=== PATIENT | female | born 1940 | race Caucasian/White ===

== ENCOUNTER 2017-06-02 19:45 | Inpatient (IN) | payer MEDICARE, OTHER ==
[~2017-06-02] VITALS: Ht 152.4 cm; Wt 67.1 kg
[~2017-06-02 19:45] MED LIST: ADALAT CC60 MG PO; ASPIR 8181 M1 PO; ASPIR 8181 MG PO; BENAZEPRIL HCL20 MG PO; BENTYL 10 MG CA10 M1 PO; CATAPRES0.1 MG PO; CENTRUM SILVER1 EAC4 PO; CENTURY ADULTS1 EACH PO; CHOLESTEROL; CLONIDINE0.1 PO; E-400 C-500 &1 EACH PO; HYDROCHLOROTH12.5 M1 PO; IMDUR 30 MG TAB30 M1 PO; LISINOPRIL20 MG PO; MIRALAX17 GM PO; NEXIUM40 MG PO; PRAVACHOL20 MG PO; SIMVASTATIN40 MG PO; TRAMADOL 50 MG50 MG PO; VITAMIN D1000 UNI1 PO; VITAMIN D3 COM1 EACH PO; VITAMIN E100 UNI1 PO; VITAMINS; ZOFRAN ODT4 MG PO; ZOFRAN4 MG PO; ZOLOFT50 MG PO
[2017-06-02 19:58] VITALS: BP 142/60
[2017-06-02 20:36] LABS: ABSOLUTE EOSINOPHILS 0.1 thou/uL (0.0-0.7); ABSOLUTE LYMPHOCYTES 2.5 thou/uL (0.8-5.3); ABSOLUTE MONOCYTES 0.7 thou/uL (0.0-1.2); ABSOLUTE NEUTROPHILS 2.7 thou/uL (1.6-8.1); BASOPHILS 0.7 %; EOSINOPHILS 1.2 %; HEMOGLOBIN 11.9 gm/dL (12.0-15.0); LYMPHOCYTES 41.6 %; MCH 28.6 pg (26.0-34.0); MCHC 32.9 g/dL (28.0-37.0); MCV 86.9 fL (80.0-100.0); MONOCYTES 11.3 %; MPV 7.4 fl. (7.2-11.1); NUCLEATED RBCS 0 /100WBC; PLATELET COUNT* 251 thou/uL (150-400); POLYS 45.2 %; RBC 4.15 mil/uL (4.20-5.00); RDW-CV 14.9 % (10.5-14.5)
[2017-06-02 20:50] LABS: CALCIUM 9.1 mg/dL (8.5-10.1); CREATININE 0.9 mg/dL (0.6-1.3); POTASSIUM 4.3 mmol/L (3.5-5.1)
[2017-06-02 20:54] LABS: ALBUMIN 3.4 g/dL (3.4-5.0); TOTAL BILIRUBIN 0.2 mg/dL (<0.1-1.0); TOTAL PROTEIN 7.1 g/dL (6.4-8.2)
[2017-06-02 21:16] LABS: URINE BILIRUBIN NEGATIVE (Negative); URINE BLOOD NEGATIVE (Negative); URINE CLARITY CLEAR; URINE COLOR YELLOW; URINE GLUCOSE-RANDOM NEGATIVE (Negative); URINE KETONES NEGATIVE (Negative); URINE LEUKOCYTES-REFLEX NEGATIVE (Negative); URINE NITRITE-REFLEX NEGATIVE (Negative); URINE PROTEIN NEGATIVE (Negative); URINE UROBILINOGEN 0.2 E.U./dl (0.2-1.0)
[2017-06-02 21:43] LABS: INFLUENZA A ANTIGEN None Detected (None Detect); INFLUENZA B ANTIGEN None Detected (None Detect)
[2017-06-03 00:05] VITALS: BP 158/99
[2017-06-03 04:51] LABS: ALBUMIN 3.1 g/dL (3.4-5.0); CALCIUM 8.8 mg/dL (8.5-10.1); CREATININE 0.6 mg/dL (0.6-1.3); POTASSIUM 3.4 mmol/L (3.5-5.1); TOTAL BILIRUBIN 0.2 mg/dL (<0.1-1.0)
[2017-06-03 04:59] LABS: HEMATOCRIT 33.8 % (37.0-47.0); HEMOGLOBIN 11.3 gm/dL (12.0-15.0); MCH 28.8 pg (26.0-34.0); MCHC 33.6 g/dL (28.0-37.0); MCV 85.9 fL (80.0-100.0); MPV 7.4 fl. (7.2-11.1); RBC 3.93 mil/uL (4.20-5.00); RDW-CV 14.8 % (10.5-14.5)
--- NOTE | 2017-06-03 07:40 | NUR ---
PATIENT ARRIVED TO UNIT AT 2322 FROM ER. ALERT AND ORIENTED. VITALS STABLE. RA. ORIENTED TO ROOM AND STAFF. EDUCATED ABOUT FALL PREVENTION. SKIN INTACT. NO SIGNS OF ANY RESPIRATORY DISTRESS. TYLENOL GIVEN FOR A HEADACHE. UP SBA FOR TO BATHROOM. NONPRODUCTIVE COUGH. HOURLY ROUNDS. NURSING WILL CONTINUE TO MONITOR.
[2017-06-03 08:25] VITALS: BP 148/68
[2017-06-03 15:00] VITALS: BP 136/52
--- NOTE | 2017-06-03 16:18 | NUR ---
PT.LIVES AT HOME WITH . IS NORMALLY FAIRLY INDEPENDENT. DOES NOT USE ANY DME AND NO HX OF HH OR SNF. SHE DOES HAVE ANXIETY AT TIMES. SHE SAID THIS MAKES HER FEEL LIKE THINGS ARE WORSE THAN THEY REALLY ARE. PLAN IS TO GO HOME WITH AT DISCHARGE. WOULD CONSIDER HOME HEALTH.
--- NOTE | 2017-06-03 16:21 | NUR ---
PATIENT REMAINS ALERT AND ORIENTED. TYLENOL FOR HEADACHE. TESSALON PERLES FOR COUGH. VSS. UP TO CHAIR THIS AFTERNOON. PHYSICAL THERAPY CLEARED PATIENT TO BE UP AD YEMI. BM THIS AM. EATING SMALL AMOUNT OF MEALS. AT BEDSIDE. CALL LIGHT WITHIN REACH. WILL CONTINUE TO MONITOR.
[2017-06-03 19:45] VITALS: BP 128/54
--- NOTE | 2017-06-04 04:44 | NUR ---
PATIENT ALERT AND ORIENTED. VITALS STABLE. RA. CONTINUED NONPRODUCTIVE COUGH. NO SIGNS OF ANY RESPIRATORY DISTRESS. POSITIVE BLOOD CULTURE RESULTS CALLED TO PHYSICIAN, NO ORDERS RECEIVED. UP INDEPENDENTLY. HOURLY ROUNDS. NURSING WILL CONTINUE TO MONITOR.
[2017-06-04] MEDS ORDERED: TESSALON PERLE100 MG PO (07:15)
[2017-06-04 07:30] VITALS: BP 141/56
--- NOTE | 2017-06-04 09:43 | NUR ---
P.T. EVAL COMPLETED YESTERDAY WITH RECOMMENDATION FOR 1 ADDTIONAL VISIT TO ENSURE INDEP AMB. PT OBSERVED UP IN ROOM INDEP. PT REPORTS INDEP IN SHOWER THIS A.M. AND PLANS TO DISCHARGE HOME. GOALS MET FOR INDEP AMB. NO FURTHER ACUTE P.T. INTERVENTION INDICATED.
[2017-06-04 10:08] VITALS: BP 141/56
[2017-06-04 10:29] VITALS: BP 141/56
--- NOTE | 2017-06-04 10:59 | NUR ---
CM SPOKE TO THE PATIENT TO DISCUSS DISCHARGE PLANNING NEEDS AND TO OFFER HH. PATIENT DECLINED HH. CM INFORMED THE RN IN-CHARGE OF THIS. RN IN AGREEMENT. CM WILL REMAIN AVAILABLE TO ASSIST AND FOLLOW NEEDED.
--- NOTE | 2017-06-04 11:02 | NUR ---
ORDER RECEIVED FOR "OT EVALUATION AND TREATMENT". CHART REVIEWED. REPORTS OF I SHOWER AND AMBULATION THIS AM. POSSIBLE D/C TODAY. PLAN TO D/C FROM [facility].
[2017-06-04 12:57] VITALS: BP 141/56
--- NOTE | 2017-06-04 13:00 | NUR ---
PATIENT LEFT UNIT AT 1205. ALERT AND ORIENTED X4. UP AD YEMI IN ROOM. IV DC'D. DENIES PAIN AND NAUSEA. ALL PERSONAL ITEMS LEFT WITH PATIENT. DISCHARGE INSTRUCTIONS SENT WITH PATIENT. VSS ON ROOM AIR. HOURLY ROUNDS HAVE BEEN MAINTAINED THROUGHOUT SHIFT. LEFT WITH VIA CAR.
== END 2017-06-04 12:05 | disposition home or self-care (01) | DRG 202 ==
LOC: M.ERS 19:45 → M.ORTHSURG 21:40 → M.TBA-ER 21:40 → M.ORTHSURG 23:38
PROVIDERS: Emergency Medicine; Psychiatry & Neurology Neurology; ADMIT Internal Medicine
DX: J20.8 Acute bronchitis due to other specified organisms (principal); J98.11 Atelectasis; E44.1 Mild protein-calorie malnutrition; B34.9 Viral infection, unspecified; J06.9 Acute upper respiratory infection, unspecified; K57.90 Diverticulosis of intestine, part unspecified, without perforation or abscess without bleeding; E78.5 Hyperlipidemia, unspecified; I10 Essential (primary) hypertension; Z85.3 Personal history of malignant neoplasm of breast; Z92.3 Personal history of irradiation; Z90.49 Acquired absence of other specified parts of digestive tract; Z90.711 Acquired absence of uterus with remaining cervical stump; Z95.0 Presence of cardiac pacemaker; Z88.6 Allergy status to analgesic agent; Z88.1 Allergy status to other antibiotic agents; Z88.8 Allergy status to other drugs, medicaments and biological substances; Z87.891 Personal history of nicotine dependence; Z82.49 Family history of ischemic heart disease and other diseases of the circulatory system; Z80.0 Family history of malignant neoplasm of digestive organs

== ENCOUNTER 2017-07-06 12:21 | Emergency (ER) | payer MEDICARE, OTHER ==
[~2017-07-06] VITALS: Ht 152.4 cm; Wt 69.8 kg
[~2017-07-06 12:21] MED LIST changes: +TESSALON PERLE100 MG PO
[2017-07-06 13:12] LABS: ABSOLUTE EOSINOPHILS 0.2 thou/uL (0.0-0.7); ABSOLUTE LYMPHOCYTES 2.5 thou/uL (0.8-5.3); ABSOLUTE MONOCYTES 0.7 thou/uL (0.0-1.2); ABSOLUTE NEUTROPHILS 4.5 thou/uL (1.6-8.1); BASOPHILS 0.4 %; HEMATOCRIT 36.1 % (37.0-47.0); LYMPHOCYTES 31.5 %; MCH 29.4 pg (26.0-34.0); MCHC 33.4 g/dL (28.0-37.0); MONOCYTES 8.5 %; MPV 7.1 fl. (7.2-11.1); NUCLEATED RBCS 0 /100WBC; PLATELET COUNT* 295 thou/uL (150-400); POLYS 56.6 %; RBC 4.09 mil/uL (4.20-5.00); RDW-CV 16.3 % (10.5-14.5)
[2017-07-06 13:21] LABS: ANION GAP 8 mmol/L (7-16); BUN 15 mg/dL (7-18); CALCIUM 8.6 mg/dL (8.5-10.1); CHLORIDE 104 mmol/L (98-107); CO2 28 mmol/L (21-32); CREATININE 0.8 mg/dL (0.6-1.3); GLUCOSE 192 mg/dL (70-99); POTASSIUM 3.6 mmol/L (3.5-5.1); SODIUM 140 mmol/L (136-145)
[2017-07-06 13:24] LABS: APTT 23.8 Seconds (25.0-31.3); PROTIME 9.7 Seconds (9.20-11.50)
[2017-07-06 13:32] LABS: ALBUMIN 3.5 g/dL (3.4-5.0); ALKALINE PHOSPHATASE 62 U/L (46-116); NT-PRO BRAIN NAT PEPTIDE 177 pg/mL (<300); SGOT 21 U/L (15-37); SGPT 21 U/L (30-65); TOTAL BILIRUBIN 0.3 mg/dL (<0.1-1.0); TROPONIN-I LEVEL <0.06 ng/mL (<0.06)
[2017-07-06 13:57] LABS: INFLUENZA A ANTIGEN None Detected (None Detect); INFLUENZA B ANTIGEN None Detected (None Detect)
[2017-07-06 15:08] VITALS: BP 119/46
--- NOTE | 2017-07-06 17:25 | EKG ---
[place] [address] ELECTROCARDIOGRAM REPORT Name: LULY HARRELL Room: [facility]#: [id number] Admission: 07/06/17 Attend Phys: Discharge: Date of : 36 Report #: [id number] THIS REPORT FOR: //name// [facility] ED Test Date: 2017-07-06 Test Time: 12:28:53 Pat Name: LULY HARRELL Department: Room: Gender: F Operator: Constanza MACARIO : 1940 Requested By: Nicol Raman Order Number: [id number] MD: Daniel Shaw Measurements Intervals [place] Rate: 93 P: -3 UT: 207 QRS: -24 QRSD: 95 T: 68 QT: 368 QTc: 458 Interpretive Statements atrial paced rhythm with pvc LVH with secondary repolarization abnormality Compared to ECG 02/09/2017 09:41:40 pvc noted Electronically Signed On 07-06-2017 17:25:05 MOUNTER AUT[employer] by Daniel Shaw [email or web address] <ELECTRONICALLY SIGNED> By: Daniel Shaw MD, [facility] 07/06/17 1725 1228 1228 Daniel Shaw MD, FACC /EPI
== END 2017-07-06 15:09 | disposition home or self-care (01) ==
LOC: M.ERS 12:21
PROVIDERS: Personal Emergency Response Attendant
DX: R07.89 Other chest pain (principal); I10 Essential (primary) hypertension; E78.5 Hyperlipidemia, unspecified; Z90.711 Acquired absence of uterus with remaining cervical stump; Z85.3 Personal history of malignant neoplasm of breast; Z90.49 Acquired absence of other specified parts of digestive tract; Z88.1 Allergy status to other antibiotic agents; Z88.8 Allergy status to other drugs, medicaments and biological substances; Z88.5 Allergy status to narcotic agent; Z87.891 Personal history of nicotine dependence

== ENCOUNTER 2017-11-09 19:53 | Inpatient (IN) | payer MEDICARE, OTHER ==
[~2017-11-09] VITALS: Ht 152.4 cm; Wt 73.9 kg
[2017-11-09 19:55] VITALS: BP 167/73
[2017-11-09 20:22] LABS: ABSOLUTE BASOPHILS 0.1 thou/uL (0.0-0.2); ABSOLUTE EOSINOPHILS 0.4 thou/uL (0.0-0.7); ABSOLUTE LYMPHOCYTES 3.5 thou/uL (0.8-5.3); ABSOLUTE MONOCYTES 0.8 thou/uL (0.0-1.2); ABSOLUTE NEUTROPHILS 3.5 thou/uL (1.6-8.1); BASOPHILS 0.8 %; EOSINOPHILS 4.9 %; HEMATOCRIT 37.8 % (37.0-47.0); HEMOGLOBIN 12.3 gm/dL (12.0-15.0); MCH 29.2 pg (26.0-34.0); MCHC 32.7 g/dL (28.0-37.0); MCV 89.5 fL (80.0-100.0); MONOCYTES 9.7 %; MPV 7.3 fl. (7.2-11.1); NUCLEATED RBCS 0 /100WBC; PLATELET COUNT* 319 thou/uL (150-400); POLYS 42.6 %; RBC 4.22 mil/uL (4.20-5.00); RDW-CV 14.2 % (10.5-14.5); WBC 8.3 thou/uL (4.0-11.0)
[2017-11-09 20:29] LABS: CREATININE 0.7 mg/dL (0.6-1.3); POTASSIUM 3.5 mmol/L (3.5-5.1)
[2017-11-09 20:33] LABS: PROTIME 9.4 Seconds (9.20-11.50)
[2017-11-09 20:40] LABS: ALBUMIN 3.6 g/dL (3.4-5.0); TOTAL BILIRUBIN 0.2 mg/dL (<0.1-1.0); TOTAL PROTEIN 7.1 g/dL (6.4-8.2)
[2017-11-09 22:08] LABS: URINE BILIRUBIN NEGATIVE (Negative); URINE BLOOD NEGATIVE (Negative); URINE CLARITY CLEAR; URINE COLOR YELLOW; URINE GLUCOSE-RANDOM NEGATIVE (Negative); URINE KETONES NEGATIVE (Negative); URINE LEUKOCYTES-REFLEX TRACE (Negative); URINE NITRITE-REFLEX NEGATIVE (Negative); URINE PROTEIN NEGATIVE (Negative); URINE SPECIFIC GRAVITY <= 1.005 (1.005-1.030); URINE UROBILINOGEN 0.2 E.U./dl (0.2-1.0)
[2017-11-09 22:34] LABS: MUCUS None Seen strn/LPF (None Seen); SQUAMOUS >10 Many /LPF (0-3)
[2017-11-09 22:36] LABS: BACTERIA-REFLEX None Seen /HPF (None Seen); CASTS None Seen /LPF (None Seen); URINE WBC-REFLEX 0-5 Rare /HPF (0-5)
[2017-11-09 22:37] LABS: CRYSTALS None Seen /LPF (None Seen); URINE RBC None Seen /HPF (0-2)
[2017-11-09 22:54] VITALS: BP 148/71
[2017-11-09 23:00] VITALS: BP 139/44
[2017-11-10] VITALS (25 sets, daily range): BP systolic 93–163; BP diastolic 45–74
--- NOTE | 2017-11-10 01:50 | NUR ---
PT ALERT ORIENTED. UP TO BR WITH STEADY GAIT. TELEMETRY SHOWS SR. PT STATES SHE HAS HAD LEFT SIDED CHEST PAIN, L ARM PAIN AND L JAW PAIN. SHE STATED IT WAS A 02/24 BUT NOW 07/25. ALSO HEAD ACHE 02/24. TYLENOL GIVEN. PT RESTING QUIETLY WITH EYES CLOSED. TELEMETRY SHOWS SR. NPO AT MN. WILL CONTINUE TO MONITOR.
[2017-11-10 02:09] LABS: HEMATOCRIT 35.9 % (37.0-47.0); HEMOGLOBIN 11.8 gm/dL (12.0-15.0); MCH 29.5 pg (26.0-34.0); MCHC 32.9 g/dL (28.0-37.0); MCV 89.7 fL (80.0-100.0); MPV 7.5 fl. (7.2-11.1); RBC 4.01 mil/uL (4.20-5.00); RDW-CV 14.2 % (10.5-14.5); WBC 6.5 thou/uL (4.0-11.0)
[2017-11-10 02:22] LABS: ALBUMIN 3.3 g/dL (3.4-5.0); CREATININE 0.6 mg/dL (0.6-1.3); POTASSIUM 3.8 mmol/L (3.5-5.1); TOTAL BILIRUBIN 0.2 mg/dL (<0.1-1.0); TOTAL PROTEIN 6.3 g/dL (6.4-8.2)
[2017-11-10 11:30] LABS: APTT 23.7 Seconds (25.0-31.3); PROTIME 9.8 Seconds (9.20-11.50)
--- NOTE | 2017-11-10 11:42 | EKG ---
[place] [address] ELECTROCARDIOGRAM REPORT Name: HARRELLLULY Francesca Room: [address] IN .R.#: [id number] Admission: 11/09/17 Attend Phys: Erna Aguilar MD Discharge: Date of : 38 Report #: [id number] THIS REPORT FOR: //name// [facility] ED Test Date: 2017-11-09 Test Time: 20:00:03 Pat Name: LULY HARRELL Department: Room: Gender: F Manufacturing Recruiter: : 1940 Requested By: Karin Matias Order Number: [id number] MD: Daniel Shaw Measurements Intervals [place] Rate: 81 P: 42 NE: 185 QRS: -10 QRSD: 94 T: 45 QT: 381 QTc: 443 Interpretive Statements Sinus rhythm Minimal ST depression, lateral leads Compared to ECG 07/06/2017 12:28:53 Ventricular premature complex(es) no longer present Atrial-paced complex(es) or rhythm no longer present Electronically Signed On 11-10-2017 11:42:36 CDT by Daniel Shaw [email or web address] <ELECTRONICALLY SIGNED> By: Daniel Shaw MD, FAC 11/10/17 1142 99 99 Daniel Shaw MD, [facility] /EPI
[2017-11-10 11:45] LABS: CHOLESTEROL 214 mg/dL (<200); HDL CHOLESTEROL 67 mg/dL (>40); LDL CHOLESTEROL 126 mg/dL (<100); TC:HDL 3.2 Ratio (Not establshd); TRIGLYCERIDE 108 mg/dL (<150); VLDL 22 mg/dL (<40)
[2017-11-10 11:53] LABS: SERUM ASSESSMENT Clear
--- NOTE | 2017-11-10 14:09 | NUR ---
ASSUMED PT CARE AT 0700 PT IS ALERT AND ORIENTED X 4 PT DENIES PAIN OR SOA ON RA, PT IS UP AD YEMI PT IS NOT A FALL RISK, PT IS SR ON THE MONITOR, PT IS NPO PER CARDIOLOGY WHO SAW PT AND WILL CATH, PT DOWN IN GROUP EXERCISE INSTRUCTOR, GROUP EXERCISE INSTRUCTOR CALLED REPORT NURSE GIVING REPORT STATED SHE WOULD CALL BACK, PT GOING TO ICU FROM GROUP EXERCISE INSTRUCTOR CALLED NURSE AND GAVE REPORT
[2017-11-10 14:51] LABS: HEMATOCRIT 36.8 % (37.0-47.0)
--- NOTE | 2017-11-10 15:24 | NUR ---
1455 PT RECEIVED PER BED FROM PRECISION JIG GRINDER. DOPAMINE AT 10 MCG/KG/MN SEE DOCUMENTED ASSESSMENT. PT IS NAUSEATED AT TIMES
--- NOTE | 2017-11-10 15:28 | NUR ---
DR CONNELLY INSERTIN CENTRAL INE IN LEFT GROIN. CONSENT OBTAINED FROM SPOUSE
--- NOTE | 2017-11-10 16:49 | NUR ---
DR PIERCE TO SEE PATIENT AND ORDERS NOTED. SPOUSE WENT HOME. NEPHEW HERE TO VISIT.
--- NOTE | 2017-11-10 16:55 | EKG ---
[place] [address] ELECTROCARDIOGRAM REPORT Name: HARRELLLULY Ma Room: [address] ADM IN M.R.#: [id number] Admission: 11/09/17 Attend Phys: Erna Aguilar MD Discharge: Date of : 38 Report #: [id number] THIS REPORT FOR: //name// [facility] Test Date: 2017-11-10 Test Time: 14:10:07 Pat Name: LULY HARRELL Department: Room: [address] Gender: Shop Coordinator: : 1940 Requested By: Daniel Shaw Order Number: [id number] MD: Willie Chaparro Measurements Intervals [place] Rate: 76 P: [place]: 136 QRS: -9 QRSD: 97 T: 60 QT: 372 QTc: 419 Interpretive Statements Atrial-paced complexes Compared to ECG 11/09/2017 20:00:03 Sinus rhythm no longer present ST (T wave) deviation no longer present Electronically Signed On 11-10-2017 16:54:53 CDT by Willie Chaparro [email or web address] <ELECTRONICALLY SIGNED> By: Willie Chaparro MD, [facility] 11/10/17 1654 1410 1410 Willie Chaparro MD, [facility] /EPI
--- NOTE | 2017-11-10 17:04 | NUR ---
PATIENT PROGRESSING TOWARDS GOALS. RECEIVED FROM TINSMITH APPRENTICE POST STENT TODAY AND ON DIAMINE DRIP. LESS NAUSEA AND WEANING DOPAMIN DRIP. NOT TACHYCARDIC NOW. GROIN SITE CHARTED. LEFT GROIN CENTRAL LINE PLACED FOR PRESSORS. SPOUSE AND NEPHEW HAVE VISITED. BEDREST MAINTAINED
[2017-11-11] VITALS (12 sets, daily range): BP systolic 105–149; BP diastolic 42–91
[2017-11-11 06:53] LABS: ABSOLUTE EOSINOPHILS 0.1 thou/uL (0.0-0.7); ABSOLUTE MONOCYTES 0.9 thou/uL (0.0-1.2); ABSOLUTE NEUTROPHILS 6.6 thou/uL (1.6-8.1); BASOPHILS 0.5 %; HEMATOCRIT 25.9 % (37.0-47.0); LYMPHOCYTES 21.2 %; MCH 29.8 pg (26.0-34.0); MCHC 33.2 g/dL (28.0-37.0); MCV 89.6 fL (80.0-100.0); MONOCYTES 8.9 %; MPV 7.4 fl. (7.2-11.1); NUCLEATED RBCS 0 /100WBC; PLATELET COUNT* 226 thou/uL (150-400); POLYS 68.4 %; RBC 2.89 mil/uL (4.20-5.00); RDW-CV 14.2 % (10.5-14.5); WBC 9.6 thou/uL (4.0-11.0)
[2017-11-11 07:12] LABS: CALCIUM 7.5 mg/dL (8.5-10.1); CREATININE 0.6 mg/dL (0.6-1.3); POTASSIUM 3.3 mmol/L (3.5-5.1)
[2017-11-11 07:17] LABS: HEMOGLOBIN 8.6 gm/dL (12.0-15.0)
--- NOTE | 2017-11-11 10:43 | EKG ---
[place] [address] ELECTROCARDIOGRAM REPORT Name: LULY HARRELL Room: [address] ADM IN M.R.#: [id number] Admission: 11/09/17 Attend Phys: Erna Aguilar MD Discharge: Date of : 38 Report #: [id number] THIS REPORT FOR: //name// [facility] Test Date: 2017-11-11 Test Time: 08:17:37 Pat Name: LULY HARRELL Department: Room: [address] Gender: F Soil Field Technician: : 1940 Requested By: Daniel Shaw Order Number: [id number] Reading MD: Daniel Shaw Measurements Intervals [place] Rate: 70 P: [place]: 135 QRS: -17 QRSD: 93 T: 62 QT: 431 QTc: 466 Interpretive Statements sinus rhythm with first degree AV block Borderline left axis deviation Abnormal R-wave progression, early transition Compared to ECG 11/10/2017 14:10:07 No significant changes Electronically Signed On 11-11-2017 10:43:06 CDT by Daniel Shaw [email or web address] <ELECTRONICALLY SIGNED> By: Daniel Shaw MD, [facility] 11/11/17 1043 08 08 Daniel Shaw MD, [facility] /EPI
--- NOTE | 2017-11-11 12:38 | NUR ---
PATIENT CHANGED TO TELEMETRY STATUS UP IN ROOM CENTRAL LINE DCD RAMSEY DCD. GROIN SITE DRESSED. DENIES DISTRESS. PROGRESSING.
--- NOTE | 2017-11-11 14:00 | NUR ---
PT GIVEN FENTANYL 25MCG FOR HEADACHE. WILL CONTINUE TO MONITOR.
--- NOTE | 2017-11-11 16:51 | NUR ---
PATIENT TRANSFERED TO RM [address] NOTIFIED. REPORT GIVEN TO ANNIE.
--- NOTE | 2017-11-11 18:57 | CARD ---
[address] [address] CARDIAC CATH REPORT Name: LULY HARRELL Room: [address] IN [facility]#: [id number] Admission: 11/09/17 Attend Phys: Erna Aguilar MD Discharge: Date of : 38 Report #: [id number] THIS REPORT FOR: //name// APPROVED REPORT Study performed: 11/10/2017 11:00:33 Patient Details Patient Status: In-Patient Room #: The patient is a 77 year-old female Event Personnel Willie Chaparro Preparation Operator, Courtney Bojorquez RN Machine Assembler Supervisor, Karoline Motta RN Monitor, Steff Camarena RTR Scrub, Daniel Shaw Title I Director Procedures Performed Art Access - R femoral artery* Left Heart Cath w/or w/o Coronaries [facility]AWN[facility] Place w/wo Plasty Single RCA [id number] Indication Unstable angina Risk Factors Arterial Hypertension Admission/Lab Medications/Medications given during procedure Glycoprotein IllbIlla Inhibitors, Platelet Aff. Inhib., Heparin Unfract., Heparin IV 5000 units, Heparin IV 3000 units, Aggrastat 7.5 ml, Plavix PO 600 mg Procedure Narrative The patient was brought electively to the Cardiac Catheterization Laboratory and was prepped and draped in a sterile manner. The right femoral was infiltrated with 1% Lidocaine subcutaneous anesthesia. A 6fr Ultimum Sheath sheath was inserted into the right femoral artery. Coronary angiography was performed using coronary diagnostic catheters. The right coronary system was accessed and visualized with a 6Fr JR4 catheter. The left coronary system was accessed and visualized with a 6Fr JL4 catheter. The left ventricle was accessed and visualized with a 6Fr Angled Pigtail catheter. Left ventricular/Aortic Valve gradient assessed via catheter pullback. Left ventriculogram was performed in MILLAN projection. Closure device was deployed with a 6 Fr MynxGrip 6/7[place]. [place] [address] CARDIAC CATH REPORT Name: LULY HARRELL Room: [address] IN ..#: [id number] Admission: 11/09/17 Attend Phys: Erna Aguilar MD Discharge: Date of : 38 Report #: [id number] occurred. Intraoperative Conscious Sedation Fentanyl 25 mcg Versed 1 mg Fluoro Time: 5.5 minutes Dose: 1131 mGy Contrast Type and Amount: 200 Visipaque Coronary Angiography The patient's coronary anatomy is right dominant. Diagnostic Cath Left Main Normal LAD 30% proximal narrowing. Diagonal 1 Normal Diagonal 2 Normal Diagonal 3 Normal Circumflex 50% proximal narrowing OM1 Normal Right Coronary 70% mid vessel narrowing. R PDA Normal RPLV Normal Left Ventriculography The left ventricle is normal in size with normal contractility. The left ventricular ejection fraction is estimated to be 65%. Left ventricular wall motion abnormalities are not present. Hemodynamics The aortic pressure is 132/42 mmHg with a mean of 66 mmHg. The left ventricular pressure is 152/1 mmHg with a mean of mmHg. The left ventricular end diastolic pressure is 10 mmHg. There was no gradient across the aortic valve upon pullback. Pullback from the left ventricle to the aorta revealed no gradient across the aortic valve. PCI Technique Lesion Anticoagulation was achieved with Heparin. 8000 units Patient was preloaded with Plavix. Percutaneous coronary intervention was performed on the mid right coronary artery. The lesion stenosis prior to intervention was 80% with DOMENIC 3 flow. A 6FR JCR 4 100CM Guide Catheter was used to engage the RCA ostium. A w Interventional Guidewire was used [place] [address] CARDIAC CATH REPORT Name: LULY HARRELL Room: [address] IN [facility]#: [id number] Admission: 11/09/17 Attend Phys: Erna Aguilar MD Discharge: Date of : 38 Report #: [id number] STENT DEPLOYMENT A drug-eluting stent Xience Alpine RX 2.5X15 was inserted and inflated up to 12.00atm for 15seconds. Repeat angiography revealed the following post-stent deployment results: 0% stenosis. Additional Inflation: 14.00atm for 10seconds. Final angiography reveals 0 % stenosis with DOMENIC flow. STENT DEPLOYMENT A drug-eluting stent Xience Alpine RX 2.5X12 was inserted and inflated up to 10.00atm for 22seconds. Repeat angiography revealed the following post-stent deployment results: 0% stenosis. Additional Inflation: 14.00atm for 18seconds. Final angiography reveals 0 % stenosis with DOMENIC 3 flow. COMMENTS After placement of the Mynx closure device, the patient complained of nausea and developed hypotension. ECG showed no acute changes and the patient denied chest pain. There was some swelling of the right groin, but no hematoma. The patient was given IV Zofran and IV fluids. There was concern that the patient had a retroperitoneal hematoma. IV Dopamine was started and the patient was transfered to the ICU. Conclusion 1. 80% stenosis noted in the mid rca just after the RV branch, 70% just before the acute margin 2. successful placement of 2 durg eluting stents in the mid rca Recommendations Cardiac Rehabilitation Referral Aggressive Medical Therapy Diagnostic Cath Approved by: Willie Chaparro MD Date/Time: <ELECTRONICALLY SIGNED> By: Daniel Shaw MD, FACC 11/11/171856 56 56Daniel Shaw MD, FAC /INF
[2017-11-12] VITALS: BP 123/45
[2017-11-12 04:00] VITALS: BP 119/74
--- NOTE | 2017-11-12 04:52 | NUR ---
PATIENT RESTED IN BED, NO ACUTE CHANGES. PATIENT DID NOT SHOW SIGNS OF DISTRESS. PAIN COMPLETELY RESOLVED WITH MEDICATION. FALL PRECAUTIONS IN PLACE, CALL LIGHT WITHIN REACH, HOURLY ROUNDING OBSERVED.
[2017-11-12 05:03] LABS: ABSOLUTE EOSINOPHILS 0.3 thou/uL (0.0-0.7); ABSOLUTE MONOCYTES 0.7 thou/uL (0.0-1.2); ABSOLUTE NEUTROPHILS 4.9 thou/uL (1.6-8.1); BASOPHILS 0.6 %; EOSINOPHILS 3.4 %; HEMATOCRIT 24.5 % (37.0-47.0); HEMOGLOBIN 8.2 gm/dL (12.0-15.0); LYMPHOCYTES 25.3 %; MCHC 33.5 g/dL (28.0-37.0); MCV 89.4 fL (80.0-100.0); MONOCYTES 8.9 %; MPV 7.5 fl. (7.2-11.1); NUCLEATED RBCS 0 /100WBC; PLATELET COUNT* 220 thou/uL (150-400); POLYS 61.8 %; RBC 2.74 mil/uL (4.20-5.00); RDW-CV 14.2 % (10.5-14.5); WBC 7.9 thou/uL (4.0-11.0)
[2017-11-12 05:17] LABS: ALBUMIN 2.7 g/dL (3.4-5.0); CREATININE 0.6 mg/dL (0.6-1.3); POTASSIUM 3.3 mmol/L (3.5-5.1); TOTAL BILIRUBIN 0.4 mg/dL (<0.1-1.0); TOTAL PROTEIN 5.6 g/dL (6.4-8.2)
[2017-11-12 08:30] VITALS: BP 131/61
[2017-11-12 09:06] VITALS: BP 105/62
[2017-11-12 11:45] VITALS: BP 105/62
[2017-11-12] MEDS ORDERED: PLAVIX 75 MG TA75 M1 PO (12:30)
--- NOTE | 2017-11-12 12:44 | NUR ---
ASSUMED PT CARE AT 0700 PT IS ALERT AND ORIENTED X 4 PT DENIES PAIN OR SOA PT IS UP AD YEMI PT IS NOT A FALL RISK, PT IS SR ON THE MONITOR, PT IS CLEARED FOR DISCHARGE WILL CONTINUE TO MONITOR
== END 2017-11-12 13:38 | disposition home or self-care (01) | DRG 246 ==
LOC: M.ERS 19:53 → M.TBA-ER 22:21 → M.2W 22:21 → M.ICU 22:21 → M.2W 23:15 → M.ICU 11-10 14:51 → M.2W 11-11 17:00
PROVIDERS: Emergency Medicine; Internal Medicine; Internal Medicine Cardiovascular Disease; Nurse Practitioner Family; ADMIT Internal Medicine
PROC: B2151ZZ Fluoroscopy of Left Heart using Low Osmolar Contrast (ICD-10-PCS; principal; 2017-11-10)
PROC: 4A023N7 Measurement of Cardiac Sampling and Pressure, Left Heart, Percutaneous Approach (ICD-10-PCS; principal; 2017-11-10)
PROC: 05HY33Z Insertion of Infusion Device into Upper Vein, Percutaneous Approach (ICD-10-PCS; principal; 2017-11-10)
PROC: 027035Z Dilation of Coronary Artery, One Artery with Two Drug-eluting Intraluminal Devices, Percutaneous Approach (ICD-10-PCS; principal; 2017-11-10)
PROC: B2111ZZ Fluoroscopy of Multiple Coronary Arteries using Low Osmolar Contrast (ICD-10-PCS; principal; 2017-11-10)
DX: I25.10 Atherosclerotic heart disease of native coronary artery without angina pectoris (principal); R57.0 Cardiogenic shock; I10 Essential (primary) hypertension; E78.5 Hyperlipidemia, unspecified; Z87.891 Personal history of nicotine dependence; Z85.3 Personal history of malignant neoplasm of breast; Z90.49 Acquired absence of other specified parts of digestive tract; Z90.711 Acquired absence of uterus with remaining cervical stump; Z95.0 Presence of cardiac pacemaker; Z88.6 Allergy status to analgesic agent; Z88.1 Allergy status to other antibiotic agents; Z88.8 Allergy status to other drugs, medicaments and biological substances; Z92.3 Personal history of irradiation; Z80.0 Family history of malignant neoplasm of digestive organs; Z82.49 Family history of ischemic heart disease and other diseases of the circulatory system

== ENCOUNTER 2017-11-15 23:57 | Observation (INO) | payer MEDICARE, OTHER ==
[~2017-11-15] VITALS: Ht 149.9 cm; Wt 70.3 kg
[~2017-11-15 23:57] MED LIST changes: +PLAVIX 75 MG TA75 M1 PO
[2017-11-15 23:59] VITALS: BP 116/68
[2017-11-16 00:22] LABS: ABSOLUTE BASOPHILS 0.1 thou/uL (0.0-0.2); ABSOLUTE EOSINOPHILS 0.4 thou/uL (0.0-0.7); ABSOLUTE LYMPHOCYTES 2.4 thou/uL (0.8-5.3); ABSOLUTE MONOCYTES 0.9 thou/uL (0.0-1.2); ABSOLUTE NEUTROPHILS 4.8 thou/uL (1.6-8.1); BASOPHILS 0.8 %; EOSINOPHILS 4.4 %; HEMATOCRIT 26.7 % (37.0-47.0); HEMOGLOBIN 8.9 gm/dL (12.0-15.0); LYMPHOCYTES 28.4 %; MCHC 33.4 g/dL (28.0-37.0); MCV 89.8 fL (80.0-100.0); MONOCYTES 10.2 %; MPV 7.3 fl. (7.2-11.1); NUCLEATED RBCS 0 /100WBC; PLATELET COUNT* 322 thou/uL (150-400); POLYS 56.2 %; RBC 2.98 mil/uL (4.20-5.00); RDW-CV 14.2 % (10.5-14.5); WBC 8.6 thou/uL (4.0-11.0)
[2017-11-16 00:31] LABS: ANION GAP 9 mmol/L (7-16); BUN 17 mg/dL (7-18); CALCIUM 8.8 mg/dL (8.5-10.1); CHLORIDE 105 mmol/L (98-107); CO2 27 mmol/L (21-32); CREATININE 0.7 mg/dL (0.6-1.3); GLUCOSE 115 mg/dL (70-99); POTASSIUM 3.8 mmol/L (3.5-5.1); SODIUM 141 mmol/L (136-145)
[2017-11-16 00:34] LABS: PROTIME 9.4 Seconds (9.20-11.50)
[2017-11-16 00:41] LABS: ALBUMIN 3.2 g/dL (3.4-5.0); ALKALINE PHOSPHATASE 78 U/L (46-116); LIPASE 183 U/L (73-393); NT-PRO BRAIN NAT PEPTIDE 249 pg/mL (<300); SGOT 23 U/L (15-37); SGPT 21 U/L (30-65); TOTAL BILIRUBIN 0.8 mg/dL (<0.1-1.0); TOTAL PROTEIN 6.7 g/dL (6.4-8.2); TROPONIN-I LEVEL <0.06 ng/mL (<0.06)
[2017-11-16 01:05] LABS: URINE BILIRUBIN NEGATIVE (Negative); URINE BLOOD NEGATIVE (Negative); URINE CLARITY CLEAR; URINE COLOR YELLOW; URINE GLUCOSE-RANDOM NEGATIVE (Negative); URINE KETONES NEGATIVE (Negative); URINE LEUKOCYTES-REFLEX 1+ (Negative); URINE NITRITE-REFLEX NEGATIVE (Negative); URINE PROTEIN NEGATIVE (Negative); URINE SPECIFIC GRAVITY <= 1.005 (1.005-1.030); URINE UROBILINOGEN 0.2 E.U./dl (0.2-1.0)
[2017-11-16 01:31] LABS: BACTERIA-REFLEX >30 Many /HPF (None Seen); CASTS None Seen /LPF (None Seen); CRYSTALS None Seen /LPF (None Seen); MUCUS 0-3 Light strn/LPF (None Seen); SQUAMOUS 0-3 Few /LPF (0-3); TRANSITIONAL EPITHEL CELL 0-3 Few /LPF (None Seen); URINE RBC 3-10 Few /HPF (0-2); URINE WBC-REFLEX >25 Many /HPF (0-5); WBC CLUMPS Moderate (None Seen)
[2017-11-16 03:43] VITALS: BP 117/62
[2017-11-16 04:16] VITALS: BP 139/64
[2017-11-16 08:30] VITALS: BP 160/61
--- NOTE | 2017-11-16 09:53 | EKG ---
[place] [address] ELECTROCARDIOGRAM REPORT Name: LULY HARRELL Room: [place] [address] ADM IN [facility].#: [id number] Admission: 11/16/17 Attend Phys: Francesca Reza Discharge: Date of : 38 Report #: [id number] THIS REPORT FOR: //name// [facility] ED Test Date: 2017-11-16 Test Time: 00:07:13 Pat Name: LULY HARRELL Department: Room: Gender: Linseed Cake Trimmer: MOON Apodaca : 1940 Requested By: Karin Matias Order Number: [id number] MD: Daniel Shaw Measurements Intervals [place] Rate: 85 P: 26 [place]: 181 QRS: -20 QRSD: 95 T: 40 QT: 359 QTc: 427 Interpretive Statements Sinus rhythm Multiple ventricular premature complexes Left ventricular hypertrophy Compared to ECG 11/11/2017 08:17:37 Ventricular premature complex(es) now present Left ventricular hypertrophy now present First degree AV block no longer present Electronically Signed On 11-16-2017 9:53:40 CDT by Daniel Shaw [email or web address] <ELECTRONICALLY SIGNED> By: Daniel Shaw MD, [facility] 11/16/17 0953 0007 0007 Daniel Shaw MD, [facility] /EPI
[2017-11-16 10:40] VITALS: BP 160/61
--- NOTE | 2017-11-17 16:40 | CON ---
[address] [address] CONSULTATION Name: LULY HARRELL Room: [address] Maribel Bosch#: [id number] Admission: 11/16/17 Attend Phys: Francesca Reza Discharge: 11/16/17 Date of : 38 Report #: [id number] THIS REPORT FOR: //name// CC: DR TERRIE Wheeler DATE OF SERVICE: 11/16/2017 HISTORY OF PRESENT ILLNESS: The patient is a 77-year-old white female who I was asked to see in the hospital today after she complained of chest pain. The patient initially presented back in 01/2017. At that time, she presented with an episode of bradycardia. She felt lightheaded and weak. She was noted to be bradycardic. She was sent to the hospital and seen by my nurse practitioner Debra Maciel. She was felt to have sick sinus syndrome. Dr. Chaparro subsequently implanted a permanent dual chamber pacemaker. She has done well since that time. She then presented last week on 11/09 complaining of chest pain. She was seen by Debra Maciel again who felt the patient was having unstable angina. Dr. Chaparro performed a cardiac catheterization from the right femoral artery. The radial approach was not used because of previous mastectomy. She was found to have an ejection fraction of 65%. She was noted to have an 80% stenosis in the mid right coronary artery and 70% stenosis in the more distal right coronary artery just before the acute margin. I then placed two drug-eluting stents in the right coronary artery. She was given heparin and loaded with Plavix. A Mynx closure device was placed. After the procedure, the patient had significant nausea and hypertension. ECG showed no acute changes. There is some swelling in the right groin, but no hematoma. She was given Zofran and fluids. She was transferred to the ICU. She was placed on dopamine. Left femoral venous sheath was placed. She eventually recovered. Following day, she felt well. She had no further leg complaints. She was then discharged. She was at home yesterday when she had an episode of epigastric discomfort. There was no radiation of the pain or associated shortness of breath, diaphoresis. An ambulance was called. She was brought here to [facility] and admitted. Her blood pressure noted to be elevated. She has had no bleeding, fever or cough. She has had no vomiting. She does note some exertional dyspnea and palpitations. No recent syncope. PAST MEDICAL HISTORY: Significant for breast cancer, hemicolectomy for diverticular disease, appendectomy, cataract extraction, hypertension, hyperlipidemia. No history of diabetes. MEDICATIONS: On admission included nifedipine, Nexium, lisinopril, pravastatin. She was taken off nifedipine because of her low blood pressure, and she has not taken an aspirin today. ALLERGIES: SHE HAS A PREVIOUS INTOLERANCE TO MORPHINE, CIPRO, [place] [address] CONSULTATION Name: LULY HARRELL Room: [place] [address] IMER Bosch#: [id number] Admission: 11/16/17 Attend Phys: Francesca Reza Discharge: 11/16/17 Date of : 38 Report #: [id number] FAMILY HISTORY: Positive for heart disease. SOCIAL HISTORY: She is . She and her live in [place]. She quit smoking in 1992. She drinks alcohol rarely. REVIEW OF SYSTEMS: She was told in the past she has had a TIA, but she does not even remember her symptoms. No history of asthma. She had a peptic ulcer years ago. She has had a kidney stone in the past. She had breast cancer, no psychiatric illness. PHYSICAL EXAMINATION: GENERAL: Elderly, frail appearing female, lying in bed. She appeared in no acute distress. VITAL SIGNS: She had a blood pressure of 130/40, pulse is 80, she is afebrile. HEENT: She is anicteric, conjunctiva pink. Mucous membranes moist. NECK: Veins nondistended. No carotid bruits. Neck supple. CHEST: Clear to auscultation. CARDIOVASCULAR: Regular rate and rhythm. Well-healed incision over the pacemaker in left subclavicular area. ABDOMEN: Soft. EXTREMITIES: There is a significant amount of ecchymosis in the right lower extremity. There was also a right femoral bruit, no edema. SKIN: Warm and dry. NEUROLOGIC: Nonfocal. RADIOLOGICAL DATA: ECG showed a sinus rhythm with occasional PACs, nonspecific ST and T-wave changes. LABORATORY DATA: Sodium 141, creatinine 0.7. Her troponin was 0.06. Her white blood cell count was 8.6, hemoglobin 8.9, which is down from 12.3 on 11/09, but up from 8.2 on 11/12. Her x-rays done in the Emergency Room yesterday, she had a portable chest x-ray that showed normal heart size, clear lung gray. IMPRESSION AND RECOMMENDATIONS: 1. Epigastric pain. Suspect dyspepsia. Cannot rule out coronary spasm. I would not recommend stress testing at this time. If the patient remains stable, I think it is reasonable to discharge the patient this afternoon. She does have followup with my nurse practitioner next week. 2. Recent stenting of the right coronary artery. The patient should be on Plavix and aspirin. 3. Previous pacemaker for sick sinus syndrome. 4. Hypertension. The patient was no longer taking her nifedipine because of low blood pressure. 5. Hyperlipidemia. The patient is on a statin drug. 6. History of breast cancer. [address] [address] CONSULTATION Name: LULY HARRELL Room: [address] Maribel Bosch#: [id number] Admission: 11/16/17 Attend Phys: Francesca Reza Discharge: 11/16/17 Date of : 36 Report #: [id number] 7. History of a kidney stone. 8. Sick sinus syndrome. Previous pacemaker insertion. <ELECTRONICALLY SIGNED> By: Daniel Shaw MD, FACC 11/17/17 1640 0829 1310Daolivier Shaw MD, FACC /nt
== END 2017-11-16 12:40 | disposition home or self-care (01) ==
LOC: M.ERS 23:57 → M.2W 11-16 01:08 → M.TBA-ER 11-16 01:08 → M.2W 11-16 03:42
PROVIDERS: Emergency Medicine; ADMIT Internal Medicine
DX: K29.00 Acute gastritis without bleeding (principal); I25.10 Atherosclerotic heart disease of native coronary artery without angina pectoris; I10 Essential (primary) hypertension; E78.5 Hyperlipidemia, unspecified; I49.5 Sick sinus syndrome; Z95.5 Presence of coronary angioplasty implant and graft; Z90.89 Acquired absence of other organs; Z85.3 Personal history of malignant neoplasm of breast; Z95.0 Presence of cardiac pacemaker

== ENCOUNTER 2017-12-12 11:05 | Inpatient (IN) | payer MEDICARE, OTHER ==
[~2017-12-12] VITALS: Ht 152.4 cm; Wt 68.9 kg
[2017-12-12 11:17] VITALS: BP 184/65
[2017-12-12 11:24] LABS: URINE BILIRUBIN NEGATIVE (Negative); URINE BLOOD NEGATIVE (Negative); URINE COLOR YELLOW; URINE GLUCOSE-RANDOM NEGATIVE (Negative); URINE KETONES NEGATIVE (Negative); URINE LEUKOCYTES-REFLEX NEGATIVE (Negative); URINE NITRITE-REFLEX NEGATIVE (Negative); URINE PROTEIN NEGATIVE (Negative); URINE SPECIFIC GRAVITY 1.015 (1.005-1.030); URINE UROBILINOGEN 0.2 E.U./dl (0.2-1.0)
[2017-12-12 11:27] LABS: URINE CLARITY CLEAR
[2017-12-12 11:38] LABS: ABSOLUTE BASOPHILS 0.1 thou/uL (0.0-0.2); ABSOLUTE EOSINOPHILS 0.3 thou/uL (0.0-0.7); ABSOLUTE LYMPHOCYTES 1.9 thou/uL (0.8-5.3); ABSOLUTE MONOCYTES 0.6 thou/uL (0.0-1.2); ABSOLUTE NEUTROPHILS 6.7 thou/uL (1.6-8.1); BASOPHILS 0.6 %; EOSINOPHILS 2.7 %; HEMATOCRIT 36.1 % (37.0-47.0); HEMOGLOBIN 11.8 gm/dL (12.0-15.0); LYMPHOCYTES 19.9 %; MCH 29.9 pg (26.0-34.0); MCHC 32.7 g/dL (28.0-37.0); MCV 91.6 fL (80.0-100.0); MONOCYTES 6.8 %; MPV 7.5 fl. (7.2-11.1); NUCLEATED RBCS 0 /100WBC; PLATELET COUNT* 276 thou/uL (150-400); RBC 3.94 mil/uL (4.20-5.00); RDW-CV 15.1 % (10.5-14.5); WBC 9.6 thou/uL (4.0-11.0)
[2017-12-12 11:46] LABS: ANION GAP 6 mmol/L (7-16); BUN 10 mg/dL (7-18); CALCIUM 8.7 mg/dL (8.5-10.1); CHLORIDE 104 mmol/L (98-107); CO2 29 mmol/L (21-32); CREATININE 0.8 mg/dL (0.6-1.3); GLUCOSE 139 mg/dL (70-99); POTASSIUM 3.3 mmol/L (3.5-5.1); SODIUM 139 mmol/L (136-145)
[2017-12-12 11:52] LABS: ALBUMIN 3.4 g/dL (3.4-5.0); ALKALINE PHOSPHATASE 72 U/L (46-116); LIPASE 130 U/L (73-393); SGOT 20 U/L (15-37); SGPT 18 U/L (30-65); TOTAL BILIRUBIN 0.4 mg/dL (<0.1-1.0); TROPONIN-I LEVEL <0.06 ng/mL (<0.06)
[2017-12-12 13:50] VITALS: BP 126/56
[2017-12-12 13:55] VITALS: BP 166/72
[2017-12-12 15:45] VITALS: BP 134/56
[2017-12-12] MEDS ORDERED: NIFEDIPINE ER60 M1 PO (17:30)
[2017-12-12 19:50] VITALS: BP 124/55
[2017-12-13] VITALS: BP 132/57
[2017-12-13 04:00] VITALS: BP 135/54
[2017-12-13 05:23] LABS: HEMATOCRIT 32.3 % (37.0-47.0); HEMOGLOBIN 10.6 gm/dL (12.0-15.0); MCH 29.9 pg (26.0-34.0); MCHC 32.8 g/dL (28.0-37.0); MCV 91.2 fL (80.0-100.0); MPV 7.5 fl. (7.2-11.1); RBC 3.54 mil/uL (4.20-5.00); RDW-CV 14.5 % (10.5-14.5); WBC 7.3 thou/uL (4.0-11.0)
[2017-12-13 05:54] LABS: CALCIUM 8.5 mg/dL (8.5-10.1); CREATININE 0.7 mg/dL (0.6-1.3); MAGNESIUM 1.9 mg/dL (1.8-2.4); POTASSIUM 3.4 mmol/L (3.5-5.1); TOTAL BILIRUBIN 0.5 mg/dL (<0.1-1.0)
[2017-12-13 08:00] VITALS: BP 139/58
[2017-12-13 11:58] VITALS: BP 155/53
--- NOTE | 2017-12-13 12:39 | EKG ---
[place] [address] ELECTROCARDIOGRAM REPORT Name: LULY HARRELL Room: [address] ADM IN M.R.#: [id number] Admission: 12/12/17 Attend Phys: Erna Aguilar MD Discharge: Date of : 38 Report #: [id number] THIS REPORT FOR: //name// [facility] ED Test Date: 2017-12-12 Test Time: 11:21:11 Pat Name: LULY HARRELL Department: Room: [facility] Gender: F Storeroom Attendant: Constanza MACARIO : 1940 Requested By: Jc Ortega Order Number: [id number] MD: Willie Chaparro Measurements Intervals [place] Rate: 80 P: 38 [place]: 168 QRS: -23 QRSD: 98 T: 54 QT: 374 QTc: 432 Interpretive Statements Sinus rhythm with PACs Left ventricular hypertrophy, by voltage Compared to ECG 11/16/2017 00:07:13 Atrial premature complex(es) now present Ventricular premature complex(es) no longer present Electronically Signed On 12-13-2017 12:39:02 CDT by Willie Chaparro [email or web address] <ELECTRONICALLY SIGNED> By: Willie Chaparro MD, FACC 12/13/17 1239 1121 1121 Willie Chaaprro MD, FAC /EPI
[2017-12-13 15:33] VITALS: BP 138/57
[2017-12-13 19:40] VITALS: BP 141/65
[2017-12-14] VITALS: BP 149/47
[2017-12-14 04:00] VITALS: BP 125/53
[2017-12-14 05:13] LABS: HEMATOCRIT 31.5 % (37.0-47.0); HEMOGLOBIN 10.4 gm/dL (12.0-15.0); MCHC 32.9 g/dL (28.0-37.0); MCV 91.1 fL (80.0-100.0); MPV 7.5 fl. (7.2-11.1); RBC 3.46 mil/uL (4.20-5.00); RDW-CV 14.7 % (10.5-14.5); WBC 4.6 thou/uL (4.0-11.0)
[2017-12-14 05:29] LABS: CALCIUM 8.2 mg/dL (8.5-10.1); CREATININE 0.7 mg/dL (0.6-1.3); MAGNESIUM 2.1 mg/dL (1.8-2.4); POTASSIUM 3.5 mmol/L (3.5-5.1)
[2017-12-14] MEDS ORDERED: TRAMADOL 50 MG50 MG PO (10:17)
[2017-12-14] MEDS ORDERED: FLAGYL500 MG PO (10:17)
[2017-12-14 11:41] VITALS: BP 175/69
== END 2017-12-14 13:30 | disposition home or self-care (01) | DRG 392 ==
LOC: M.ERS 11:05 → M.TBA-ER 12:52 → M.2W 12:52
PROVIDERS: Family Medicine; ADMIT Internal Medicine
DX: K57.32 Diverticulitis of large intestine without perforation or abscess without bleeding (principal); I10 Essential (primary) hypertension; E78.5 Hyperlipidemia, unspecified; I25.10 Atherosclerotic heart disease of native coronary artery without angina pectoris; Z85.3 Personal history of malignant neoplasm of breast; Z90.49 Acquired absence of other specified parts of digestive tract; Z92.3 Personal history of irradiation; Z95.0 Presence of cardiac pacemaker; Z90.711 Acquired absence of uterus with remaining cervical stump; Z95.5 Presence of coronary angioplasty implant and graft; Z88.8 Allergy status to other drugs, medicaments and biological substances; Z88.6 Allergy status to analgesic agent; Z88.1 Allergy status to other antibiotic agents; Z79.899 Other long term (current) drug therapy; Z82.49 Family history of ischemic heart disease and other diseases of the circulatory system; Z80.0 Family history of malignant neoplasm of digestive organs

== ENCOUNTER 2017-12-24 11:59 | Emergency (ER) | payer MEDICARE, OTHER ==
[~2017-12-24] VITALS: Ht 149.9 cm; Wt 69.0 kg
[~2017-12-24 11:59] MED LIST changes: +FLAGYL500 MG PO; +NIFEDIPINE ER60 M1 PO
[2017-12-24 12:52] LABS: ABSOLUTE EOSINOPHILS 0.2 thou/uL (0.0-0.7); ABSOLUTE LYMPHOCYTES 2.8 thou/uL (0.8-5.3); ABSOLUTE MONOCYTES 0.6 thou/uL (0.0-1.2); BASOPHILS 0.3 %; EOSINOPHILS 2.1 %; HEMATOCRIT 38.6 % (37.0-47.0); HEMOGLOBIN 12.5 gm/dL (12.0-15.0); LYMPHOCYTES 36.3 %; MCH 29.2 pg (26.0-34.0); MCHC 32.4 g/dL (28.0-37.0); MCV 90.3 fL (80.0-100.0); MONOCYTES 8.3 %; MPV 7.5 fl. (7.2-11.1); NUCLEATED RBCS 0 /100WBC; PLATELET COUNT* 456 thou/uL (150-400); RBC 4.27 mil/uL (4.20-5.00); RDW-CV 14.9 % (10.5-14.5); WBC 7.6 thou/uL (4.0-11.0)
[2017-12-24 12:57] LABS: ANION GAP 7 mmol/L (7-16); BUN 12 mg/dL (7-18); CALCIUM 8.6 mg/dL (8.5-10.1); CHLORIDE 104 mmol/L (98-107); CO2 28 mmol/L (21-32); CREATININE 0.7 mg/dL (0.6-1.3); GLUCOSE 137 mg/dL (70-99); POTASSIUM 3.7 mmol/L (3.5-5.1); SODIUM 139 mmol/L (136-145)
[2017-12-24 13:05] LABS: URINE BILIRUBIN NEGATIVE (Negative); URINE BLOOD NEGATIVE (Negative); URINE CLARITY CLEAR; URINE COLOR YELLOW; URINE GLUCOSE-RANDOM NEGATIVE (Negative); URINE KETONES NEGATIVE (Negative); URINE LEUKOCYTES-REFLEX NEGATIVE (Negative); URINE NITRITE-REFLEX NEGATIVE (Negative); URINE PROTEIN NEGATIVE (Negative); URINE UROBILINOGEN 0.2 E.U./dl (0.2-1.0)
[2017-12-24 13:08] LABS: ALKALINE PHOSPHATASE 74 U/L (46-116); NT-PRO BRAIN NAT PEPTIDE 198 pg/mL (<300); SGOT 31 U/L (15-37); SGPT 26 U/L (30-65); TOTAL BILIRUBIN 0.2 mg/dL (<0.1-1.0); TOTAL PROTEIN 7.6 g/dL (6.4-8.2); TROPONIN-I LEVEL <0.06 ng/mL (<0.06)
[2017-12-24 15:34] VITALS: BP 133/62
--- NOTE | 2017-12-24 17:39 | EKG ---
[place] [address] ELECTROCARDIOGRAM REPORT Name: LULY HARRELL Room: [facility]#: [id number] Admission: 12/24/17 Attend Phys: Discharge: 12/24/17 Date of : 36 Report #: [id number] THIS REPORT FOR: //name// [facility] ED Test Date: 2017-12-24 Test Time: 12:04:07 Pat Name: LULY HARRELL Department: Room: Gender: F Narrow Gauge Operator: IMANI : 1940 Requested By: Nicol Raman Order Number: [id number] MD: Daniel Shaw Measurements Intervals [place] Rate: 80 P: 15 [place]: 167 QRS: -18 QRSD: 98 T: 39 QT: 406 QTc: 469 Interpretive Statements Sinus rhythm Left ventricular hypertrophy Baseline wander in lead(s) V4 Compared to ECG 12/12/2017 11:21:11 No significant changes Electronically Signed On 12-24-2017 17:38:52 CDT by Daniel Shaw [email or web address] <ELECTRONICALLY SIGNED> By: Daniel Shaw MD, [facility] 12/24/17 1738 1204 1204 Daniel Shaw MD, [facility] /EPI
== END 2017-12-24 15:34 | disposition home or self-care (01) ==
LOC: M.ERS 11:59
PROVIDERS: Personal Emergency Response Attendant
DX: R20.0 Anesthesia of skin (principal); R20.2 Paresthesia of skin; I10 Essential (primary) hypertension; E78.5 Hyperlipidemia, unspecified; Z90.711 Acquired absence of uterus with remaining cervical stump; Z85.3 Personal history of malignant neoplasm of breast; Z90.49 Acquired absence of other specified parts of digestive tract; Z88.8 Allergy status to other drugs, medicaments and biological substances; Z88.1 Allergy status to other antibiotic agents; Z88.5 Allergy status to narcotic agent; Z88.6 Allergy status to analgesic agent; Z87.891 Personal history of nicotine dependence

== ENCOUNTER 2017-12-25 11:04 | Inpatient (IN) | payer MEDICARE, OTHER ==
[~2017-12-25] VITALS: Ht 149.9 cm; Wt 67.6 kg
[2017-12-25 11:09] VITALS: BP 130/70
[2017-12-25 12:04] LABS: ABSOLUTE EOSINOPHILS 0.1 thou/uL (0.0-0.7); ABSOLUTE LYMPHOCYTES 2.4 thou/uL (0.8-5.3); ABSOLUTE MONOCYTES 0.6 thou/uL (0.0-1.2); ABSOLUTE NEUTROPHILS 6.6 thou/uL (1.6-8.1); BASOPHILS 0.4 %; EOSINOPHILS 0.7 %; HEMATOCRIT 38.6 % (37.0-47.0); HEMOGLOBIN 12.5 gm/dL (12.0-15.0); LYMPHOCYTES 24.6 %; MCH 29.3 pg (26.0-34.0); MCHC 32.4 g/dL (28.0-37.0); MCV 90.2 fL (80.0-100.0); MONOCYTES 6.5 %; MPV 7.6 fl. (7.2-11.1); NUCLEATED RBCS 0 /100WBC; PLATELET COUNT* 431 thou/uL (150-400); POLYS 67.8 %; RBC 4.28 mil/uL (4.20-5.00); RDW-CV 15.1 % (10.5-14.5); WBC 9.8 thou/uL (4.0-11.0)
[2017-12-25 12:05] LABS: URINE BILIRUBIN NEGATIVE (Negative); URINE BLOOD NEGATIVE (Negative); URINE CLARITY CLEAR; URINE COLOR YELLOW; URINE GLUCOSE-RANDOM NEGATIVE (Negative); URINE KETONES NEGATIVE (Negative); URINE LEUKOCYTES-REFLEX NEGATIVE (Negative); URINE NITRITE-REFLEX NEGATIVE (Negative); URINE PROTEIN NEGATIVE (Negative); URINE SPECIFIC GRAVITY 1.015 (1.005-1.030); URINE UROBILINOGEN 0.2 E.U./dl (0.2-1.0)
[2017-12-25 12:21] LABS: ALBUMIN 4.1 g/dL (3.4-5.0); ALKALINE PHOSPHATASE 69 U/L (46-116); ANION GAP 8 mmol/L (7-16); BUN 11 mg/dL (7-18); CALCIUM 8.9 mg/dL (8.5-10.1); CHLORIDE 102 mmol/L (98-107); CO2 28 mmol/L (21-32); CREATININE 0.8 mg/dL (0.6-1.3); GLUCOSE 113 mg/dL (70-99); NT-PRO BRAIN NAT PEPTIDE 227 pg/mL (<300); POTASSIUM 3.4 mmol/L (3.5-5.1); SGOT 25 U/L (15-37); SGPT 25 U/L (30-65); SODIUM 138 mmol/L (136-145); TOTAL BILIRUBIN 0.3 mg/dL (<0.1-1.0); TOTAL PROTEIN 7.6 g/dL (6.4-8.2); TROPONIN-I LEVEL <0.06 ng/mL (<0.06)
[2017-12-25 12:22] LABS: APTT 23.8 Seconds (25.0-31.3); PROTIME 9.8 Seconds (9.20-11.50)
--- NOTE | 2017-12-25 15:20 | EKG ---
[place] [address] ELECTROCARDIOGRAM REPORT Name: LULY HARRELL Francesca Room: [place] [address] ADM IN [facility].#: [id number] Admission: 12/25/17 Attend Phys: Mihir Rayo MD Discharge: Date of : 36 Report #: [id number] THIS REPORT FOR: //name// [facility] ED Test Date: 2017-12-25 Test Time: 11:15:28 Pat Name: LULY HARRELL Department: Room: [facility] Gender: F Personalized Living Manager: : 1940 Requested By: Nicol Raman Order Number: [id number] MD: Daniel Shaw Measurements Intervals [place] Rate: 68 P: 0 HI: 209 QRS: -22 QRSD: 103 T: 12 QT: 453 QTc: 482 Interpretive Statements Sinus rhythm Left ventricular hypertrophy Compared to ECG 12/24/2017 12:04:07 No significant changes Electronically Signed On 12-25-2017 15:20:17 CDT by Daniel Shaw [email or web address] <ELECTRONICALLY SIGNED> By: Daniel Shaw MD, [facility] 12/25/17 1520 [id number] Daniel Shaw MD, [facility] /EPI
--- NOTE | 2017-12-25 15:30 | 2DMMODE ---
[place] [address] 2 D/M-MODE ECHOCARDIOGRAM Name: LULY HARRELL Room: [place] [address] ADM IN [facility]#: [id number] Admission: 12/25/17 Attend Phys: Mihir Rayo, Discharge: Date of : 36 Date of Service: 12/25/17 1530 Report #: [id number] THIS REPORT FOR: //name// APPROVED REPORT Study performed: 12/25/2017 14:42:49 EXAM: Comprehensive 2D, Doppler, and color-flow Echocardiogram Patient Location: In-Patient Room #: ER Status: routine BSA: 1.64 HR: 74 bpm BP: 164/68 mmHg Rhythm: NSR Other Information Study Quality: Good Indications CVA/TIA Echo Enhancing Agent Indication: Rule out Shunt Agent(s) / Amount(s) Used: Agitated Saline 10 cc 2D Dimensions LVEF(%): 81.33 (>50%) IVSd: 9.10 (7-11mm) LVOT Diam: 18.54 (18-24mm) LVDd: 46.51 mm PWd: 8.84 (7-11mm) Ascending Ao: 31.11 (22-36mm) LVDs: 23.26 (25-40mm) Aortic Root: 27.48 mm Joshi's LVEF: 81.33 % Volumes Left Atrial Volume (Systole) LA ESV Index: 25.00 mL/m2 Aortic Valve AoV Peak Rich.: 1.14 m/s AO Peak Gr.: 5.22 mmHg LVOT Max P.08 mmHg AO Mean Gr.: 2.97 mmHg LVOT Mean P.37 mmHg LVOT Max V: 0.88 m/s AO V2 VTI: 22.45 cm LVOT Mean V: 0.53 m/[place] [address] 2 D/M-MODE ECHOCARDIOGRAM Name: SHARRILULY Ma Room: [address] IN [facility]#: [id number] Admission: 12/25/17 Attend Phys: Mihir Rayo, Discharge: Date of : 36 Date of Service: 12/25/17 1530 Report #: [id number] TIFFANY (VTI): 2.00 cm2 LVOT V1 VTI: 16.61 cm Mitral Valve E/A Ratio: 0.84 MV Decel. Time: 248.50 ms MV E Max Rich.: 0.53 m/s MV PHT: 72.07 ms MVA (PHT): 3.05 cm2 TDI E/Lateral E': 6.63 E/Medial E': 8.83 Medial E' Rich.: 0.06 m/s Lateral E' Rich.: 0.08 m/s Pulmonary Valve PV Peak Rich.: 0.98 m/s PV Peak Gr.: 3.87 mmHg Tricuspid Valve RAP Estimate: 5.00 mmHg TR Peak Gr.: 23.90 mmHg RVSP: 28.90 mmHg PA Pressure: 28.90 mmHg Left Ventricle The left ventricle is normal size. There is normal LV segmental wall motion. There is normal left ventricular wall thickness. Left ventricular systolic function is normal. The left ventricular ejection fraction is within the normal range. LVEF is 55-60%. Grade I - abnormal relaxation pattern. Right Ventricle The right ventricle is normal size. The right ventricular systolic function is normal. Pacemaker lead is present in the right ventricle. Atria The left atrium size is normal. Interatrial septum is intact without evidence of ASD or PFO. The right atrium size is normal. Aortic Valve The aortic valve is normal in structure. No aortic regurgitation is present. There is no aortic valvular stenosis. Mitral Valve The mitral valve is normal in structure. Trace mitral regurgitation. No evidence of mitral valve stenosis. [place] [address] 2 D/M-MODE ECHOCARDIOGRAM Name: LULY HARRELL Room: [address] IN [facility]#: [id number] Admission: 12/25/17 Attend Phys: Mihir Rayo, Discharge: Date of : 36 Date of Service: 12/25/17 1530 Report #: [id number] The tricuspid valve is normal in structure. Mild tricuspid regurgitation. No pulmonary hypertension. Pulmonic Valve The pulmonary valve is normal in structure. There is no pulmonic valvular regurgitation. Great Vessels The aortic root is normal in size. IVC is normal in size and collapses with >50% inspiration Pericardium There is no pericardial effusion. <Conclusion> LVEF is 55-60%. Interatrial septum is intact without evidence of ASD or PFO. <ELECTRONICALLY SIGNED> By: Daniel Shaw MD, FACC 12/25/17 1530 1530 [id number] Daniel Shaw MD, FACC /INF
[2017-12-25 16:18] VITALS: BP 138/68
[2017-12-25 16:25] VITALS: BP 130/57
[2017-12-25 20:00] VITALS: BP 132/50
[2017-12-25 23:07] LABS: GLYCOHEMOGLOBIN (HGB A1C) 4.9 % (4.8-5.6)
[2017-12-26] VITALS: BP 139/60
[2017-12-26 04:00] VITALS: BP 142/56
[2017-12-26 05:40] LABS: ABSOLUTE BASOPHILS 0.1 thou/uL (0.0-0.2); ABSOLUTE EOSINOPHILS 0.4 thou/uL (0.0-0.7); ABSOLUTE LYMPHOCYTES 2.7 thou/uL (0.8-5.3); ABSOLUTE MONOCYTES 0.6 thou/uL (0.0-1.2); ABSOLUTE NEUTROPHILS 2.6 thou/uL (1.6-8.1); EOSINOPHILS 6.3 %; HEMATOCRIT 33.8 % (37.0-47.0); HEMOGLOBIN 11.3 gm/dL (12.0-15.0); LYMPHOCYTES 42.7 %; MCHC 33.5 g/dL (28.0-37.0); MCV 89.5 fL (80.0-100.0); MONOCYTES 9.6 %; MPV 7.4 fl. (7.2-11.1); NUCLEATED RBCS 0 /100WBC; PLATELET COUNT* 364 thou/uL (150-400); POLYS 40.4 %; RBC 3.78 mil/uL (4.20-5.00); RDW-CV 14.9 % (10.5-14.5); WBC 6.3 thou/uL (4.0-11.0)
[2017-12-26 06:53] LABS: ANION GAP 6 mmol/L (7-16); BUN 10 mg/dL (7-18); CALCIUM 8.6 mg/dL (8.5-10.1); CHLORIDE 107 mmol/L (98-107); CHOLESTEROL 160 mg/dL (<200); CO2 27 mmol/L (21-32); CREATININE 0.6 mg/dL (0.6-1.3); GLUCOSE 85 mg/dL (70-99); HDL CHOLESTEROL 56 mg/dL (>40); LDL CHOLESTEROL 79 mg/dL (<100); POTASSIUM 3.7 mmol/L (3.5-5.1); SODIUM 140 mmol/L (136-145); TC:HDL 2.9 Ratio (Not establshd); TRIGLYCERIDE 125 mg/dL (<150); VLDL 25 mg/dL (<40)
[2017-12-26 06:56] LABS: SERUM ASSESSMENT Clear
[2017-12-26 08:05] VITALS: BP 146/73
[2017-12-26 12:33] VITALS: BP 154/79
[2017-12-26 16:00] VITALS: BP 147/58
[2017-12-26 20:00] VITALS: BP 124/75
[2017-12-27] VITALS: BP 126/48
[2017-12-27 04:00] VITALS: BP 125/59
[2017-12-27 08:00] VITALS: BP 151/69
[2017-12-27 10:17] VITALS: BP 151/69
[2017-12-27] MEDS ORDERED: ASPIR-TRIN325 MG PO (10:21)
== END 2017-12-27 10:45 | disposition home or self-care (01) | DRG 65 ==
LOC: M.ERS 11:04 → M.TBA-ER 13:38 → M.2W 16:31
PROVIDERS: Personal Emergency Response Attendant; ADMIT Internal Medicine
DX: I63.9 Cerebral infarction, unspecified (principal); I50.32 Chronic diastolic (congestive) heart failure; R20.2 Paresthesia of skin; I10 Essential (primary) hypertension; K57.90 Diverticulosis of intestine, part unspecified, without perforation or abscess without bleeding; I25.10 Atherosclerotic heart disease of native coronary artery without angina pectoris; K21.9 Gastro-esophageal reflux disease without esophagitis; Z88.6 Allergy status to analgesic agent; Z88.1 Allergy status to other antibiotic agents; Z88.8 Allergy status to other drugs, medicaments and biological substances; Z90.49 Acquired absence of other specified parts of digestive tract; Z90.711 Acquired absence of uterus with remaining cervical stump; Z95.0 Presence of cardiac pacemaker; Z95.5 Presence of coronary angioplasty implant and graft; Z82.49 Family history of ischemic heart disease and other diseases of the circulatory system; Z80.0 Family history of malignant neoplasm of digestive organs; Z79.82 Long term (current) use of aspirin; Z79.899 Other long term (current) drug therapy